=== PATIENT | female | born 1995 | race Caucasian/White ===

== ENCOUNTER → 2023-02-19 | Outpatient (REF) | payer OTHER | LOC: M SFHCWAGY 13:17 | PROVIDERS: ATTEND Specialist | DX: Z12.4 Encounter for screening for malignant neoplasm of cervix (principal); B37.9 Candidiasis, unspecified ==

== ENCOUNTER → 2023-03-05 | Outpatient (CLI) | payer OTHER ==
[~2023-03-05] MED LIST: E-Z-GAS II EFFERVESCENT PACKET (SODIUM BICARB./CITRIC ACID/SIMETHICONE) As Ordered ONE; E-Z-HD 98% w/w 340GM SUSP BTL As Ordered ONE; E-Z-PAQUE 96% w/w SUSP 176GM BTL As Ordered ONE
== END ==
LOC: M RAD 08:17
PROVIDERS: ATTEND Family Medicine
DX: K22.9 Disease of esophagus, unspecified (principal)

== ENCOUNTER → 2023-04-09 | Outpatient (CLI) | payer OTHER | LOC: M RAD 18:55 | PROVIDERS: ATTEND Physician Assistant Medical | DX: M25.561 Pain in right knee (principal) ==

== ENCOUNTER → 2023-05-15 | Outpatient (CLI) | payer OTHER ==
[2023-05-15 12:01] LABS: TOTAL T3 109.2 NG/DL (60.0-181.0)
[2023-05-15 12:02] LABS: FREE THYROXINE INDEX 2.6 % (1.3-4.8); T UPTAKE 28.5 % (22.5-37.0); THYROID STIMULATING HORMONE 31.816 uIU/ML (0.55-4.78)
[2023-05-15 12:04] LABS: FREE T3 2.9 PG/ML (2.3-4.2)
== END ==
LOC: M PLALAB 09:13
PROVIDERS: ATTEND Internal Medicine Endocrinology, Diabetes & Metabolism
DX: E04.9 Nontoxic goiter, unspecified (principal); Z83.49 Family history of other endocrine, nutritional and metabolic diseases; E05.00 Thyrotoxicosis with diffuse goiter without thyrotoxic crisis or storm; E03.9 Hypothyroidism, unspecified; O90.5 Postpartum thyroiditis; E53.8 Deficiency of other specified B group vitamins; E55.9 Vitamin D deficiency, unspecified

== ENCOUNTER → 2023-07-03 | Outpatient (CLI) | payer OTHER ==
[2023-07-03 11:15] LABS: THYROID STIMULATING HORMONE 1.635 uIU/ML (0.55-4.78); THYROXINE (T4) 10.2 UG/DL (4.5-10.9); TOTAL T3 116.3 NG/DL (60.0-181.0)
[2023-07-03 11:16] LABS: FREE T3 3.2 PG/ML (2.3-4.2)
[2023-07-03 11:17] LABS: FREE T4 1.23 NG/DL (0.89-1.76)
== END ==
LOC: M LAB 09:59
PROVIDERS: ATTEND Internal Medicine Endocrinology, Diabetes & Metabolism
DX: E04.9 Nontoxic goiter, unspecified (principal); Z83.49 Family history of other endocrine, nutritional and metabolic diseases; E05.00 Thyrotoxicosis with diffuse goiter without thyrotoxic crisis or storm; E06.3 Autoimmune thyroiditis; E03.9 Hypothyroidism, unspecified; O90.5 Postpartum thyroiditis; E53.8 Deficiency of other specified B group vitamins; E55.9 Vitamin D deficiency, unspecified

== ENCOUNTER → 2023-10-15 | Outpatient (CLI) | payer OTHER ==
[2023-10-15 08:04] LABS: HEMATOCRIT 38.2 % (36.0-47.0); HEMOGLOBIN 12.4 g/dl (12.0-15.5); MEAN CORPUSCULAR HEMOGLOBIN 26.5 pg (27.0-33.0); MEAN CORPUSCULAR HGB CONC 32.5 g/dl (32.0-36.5); MEAN CORPUSCULAR VOLUME 81.6 fl (80.0-96.0); PLATELET COUNT, AUTOMATED 284 10^3/uL (150-450); RED BLOOD COUNT 4.68 10^6/uL (4.00-5.40)
[2023-10-15 08:29] LABS: HEMOGLOBIN A1c 5.4 % (4.0-6.0)
[2023-10-15 08:34] LABS: ALBUMIN 3.8 G/DL (3.2-5.2); ALKALINE PHOSPHATASE 78 U/L (46-116); ALT/SGPT 14 U/L (7.0-40); AST/SGOT 15 U/L (<34); BILIRUBIN,TOTAL 0.6 MG/DL (0.3-1.2); BLOOD UREA NITROGEN 14 MG/DL (9-23); CALCIUM LEVEL 9.3 MG/DL (8.5-10.1); CARBON DIOXIDE LEVEL 28 MMOL/L (20-31); CHLORIDE LEVEL 106 MMOL/L (98-107); CHOLESTEROL LEVEL 153 MG/DL (<200); CREATININE FOR GFR 0.69 MG/DL (0.55-1.30); GLOMERULAR FILTRATION RATE > 60.0 (>60); GLUCOSE, FASTING 96 MG/DL (60-100); HDL CHOLESTEROL 42.5 MG/DL (>40); LDL CHOLESTEROL 96.5 MG/DL (<100); NON-HDL-C 110.5 MG/DL; POTASSIUM SERUM 4.3 MMOL/L (3.5-5.1); SODIUM LEVEL 140 MMOL/L (136-145); TOTAL PROTEIN 7.1 G/DL (5.7-8.2); TRIGLYCERIDES LEVEL 70 MG/DL (<150)
[2023-10-15 08:39] LABS: FREE T3 3.6 PG/ML (2.3-4.2)
== END ==
LOC: M LAB 07:30
PROVIDERS: ATTEND Registered Nurse
DX: E66.9 Obesity, unspecified (principal)